=== PATIENT | female | born 1970 | race Caucasian/White ===

== ENCOUNTER 2021-10-10 19:22 | Emergency (ER) | payer OTHER ==
[~2021-10-10] VITALS: Ht 167.6 cm; Wt 74.8 kg
[2021-10-10 19:27] VITALS: BP_SYST 157
--- NOTE | 2021-10-10 19:40 | NUR ---
IV ESTABLISHED AND LABS DRAWN ND GIVEN TO RN OCCUPATIONAL HEALTH
--- NOTE | 2021-10-10 19:44 | NUR ---
PT BIB AFTER STARTING TO HAVE 10/10 CRUSHING TYPE CHEST PAIN OVER LEFT BREAST AREA 10/10. PAIN IS NONRADIATING, DENIES SOB, NO N/V. PLACED PT ON BEDISDE MONITOR. V/S ARE STABLE AT THIS TIME. PT WAS AT DINNER WITH HER AND ON THE WAY HOME SHE STARTED HAVING SEVERE CP. DENIES ANY HX OR HEART PROBLEMS OR HTN. PT PLACED IN GOWN, BED IN LOWEST POSITION, SIDERAIL UP X 1, AND BED LOCKED. [facility] MEDS - PROPANOLOL, TOPOMAX
--- NOTE | 2021-10-10 20:01 | NUR ---
PT STATES PAIN HAS GOT SLIGHTLY BETTER 06/10
[2021-10-10 20:05] LABS: BASOPHILS # (AUTO) 0.1 K/uL (0.0-0.2); BASOPHILS % (AUTO) 0.7 % (0.0-2.0); HEMATOCRIT 43.5 % (36-48); HEMOGLOBIN 14.5 g/dL (12.0-16.0); LYMPHOCYTES # (AUTO) 3.7 K/uL (1.0-5.5); LYMPHOCYTES % (AUTO) 38.9 % (20.5-51.5); MEAN CORPUSCULAR HEMOGLOBIN 29 pg (27-31); MEAN CORPUSCULAR HGB CONC 33 % (32-36); MEAN CORPUSCULAR VOLUME 88 fL (79.0-98.0); MONOCYTES # (AUTO) 0.8 K/uL (0.0-1.0); MONOCYTES % (AUTO) 8.4 % (1.7-9.3); PLATELET COUNT (AUTO) 297 K/uL (130-430); RED BLOOD CELL COUNT(AUTO) 4.95 MIL/uL (4.2-6.2); RED CELL DISTRIBUTION WIDTH 13.7 % (9.0-15.0); WHITE BLOOD COUNT (AUTO) 9.5 K/uL (4.8-10.8)
[2021-10-10 20:08] LABS: CALCIUM 9.5 mg/dL (8.4-11.0); CREATININE 0.77 mg/dL (0.55-1.30); POTASSIUM 3.2 mmol/L (3.5-5.1)
[2021-10-10 20:14] LABS: ALBUMIN 4.3 g/dL (3.4-4.8); PROTHROMBIN TIME 10.5 SECS (9.5-12.5); TOTAL BILIRUBIN 0.2 mg/dL (0.0-1.0)
[2021-10-10] MEDS ORDERED: ASPIRIN 325 MG TABLET PO ONE (20:30)
[2021-10-10] MEDS ORDERED: HYDROcodone/ACETAMIN 5-325 MG TAB (NORCO/ VICODIN) PO ONE (20:30)
--- NOTE | 2021-10-10 21:15 | NUR ---
PAIN 5/10. PT STATES SHES FEELING MUCH BETTER. PT IS MORE RELAXED AT THIS TIME. REMAINS ON BEDSIDE MONITOR
[2021-10-11] MEDS ORDERED: LORA-258 PO (00:21)
[2021-10-11] MEDS ORDERED: NAPR-686 PO (00:21)
[2021-10-11 00:33] VITALS: BP_SYST 118
--- NOTE | 2021-10-11 00:34 | NUR ---
Patient given written and verbal discharge instructions and verbalizes understanding. ER MD discussed with patient the results and treatment provided. Patient in stable condition. ID arm band removed. IV catheter removed intact and dressing applied, no active bleeding. Rx of ATIVAN AND NAPROXEN given. Patient educated on pain management and to follow up with PMD. Pain Scale 0. Opportunity for questions provided and answered. Medication side effect fact sheet provided.
== END 2021-10-11 00:33 | disposition home or self-care (01) ==
LOC: SED 19:22
DX: R07.89 Other chest pain (principal)
CPT/HCPCS: 36415; 71045; 80053; 84484; 84703; 85025; 85379; 85610-TC; 93005; 99285